=== PATIENT | female | born 1985 | race Caucasian/White ===

== ENCOUNTER → 2018-11-30 | Outpatient (CLI) | payer OTHER ==
--- NOTE | 2018-11-30 12:57 | RADIOLOGY REPORT (SQ) ---
EXAM DESCRIPTION: DUPLEX ART/AVIVA FLOW COMPLETE COMPLETED DATE/TIME: 11/30/2018 12:34 pm REASON FOR STUDY: ATHEROSCLEROSIS OF RENAL ARTERY I70.1 ATHEROSCLEROSIS OF RENAL ARTERY COMPARISON: None. TECHNIQUE: Realtime and static grayscale images acquired. Selected color Doppler, velocities and spe ctral images recorded. LIMITATIONS: None. FINDINGS: RIGHT KIDNEY: RENAL ARTERY VELOCITIES: 98 cm/sec. Segmental artery velocity 66 cm/sec. RENAL VEIN: Color doppler flow present, patent. VELOCITY RATIO: Normal. Normal waveforms. KIDNEY: 11 cm in length. No significant pathology. LEFT KIDNEY: RENAL ARTERY VELOCITIES: 52 cm/sec. Segmental artery velocity 71 cm/sec. RENAL VEIN: Color doppler flow present, patent. VELOCITY RATIO: Normal. Normal waveforms. KIDNEY: 11 cm in length No significant pathology. BLADDER: Normal. OTHER: No other significant finding. IMPRESSION: NO DOPPLER EVIDENCE OF HEMODYNAMICALLY SIGNIFICANT RENAL ARTERY STENOSIS. COMMENT: NORMAL RENAL ARTERY/AORTA VELOCITY RATIO IS LESS THAN OR EQUAL TO 3.5. TECHNICAL DOCUMENTATION: JOB ID: [id number] [employer] All Rights Reserved Reading location - IP/workstation name: [email or web address]
== END ==
LOC: RAD 10:00
PROVIDERS: ATTEND Nurse Practitioner Family
DX: I70.1 Atherosclerosis of renal artery (principal)
CPT/HCPCS: 93975

== ENCOUNTER 2019-09-21 08:45 | Emergency (ER) | payer OTHER ==
[2019-09-21] MEDS ORDERED: ACETAMINOPHEN 325 MG TABLET PO ONE (09:42)
--- NOTE | 2019-09-21 09:42 | ER Document Report ---
ED ENT - General Chief Complaint: Sore Throat Stated Complaint: HEADACHE,SORE THROAT,FEVER Time Seen by Provider: 09/21/19 09:09 Notes: HPI: 34-year-old female who presents today stating on Friday she started to have some runny nose, congestion, sore throat, and a cough. She states a fever of 101. She denies any headache, neck stiffness, rash, dysuria, vomiting, or diarrhea. ROS: See HPI All other review of systems reviewed and otherwise negative Reviewed vital signs and nursing note as charted by RN. PHYSICAL EXAM: CONSTITUTIONAL: Alert and oriented and responds appropriately to questions. Well-appearing; well-nourished HEAD: Normocephalic; atraumatic EYES: PERRL; Conjunctivae clear, sclerae non-icteric ENT: Normal nose; no rhinorrhea; moist mucous membranes; pharynx minimally erythematous with no peritonsillar swelling with a midline nonswollen uvula NECK: Supple without meningismus; non-tender; no cervical lymphadenopathy, no masses CARD: Regular rate and rhythm; no murmurs; symmetric distal pulses RESP: Normal chest excursion without splinting or tachypnea; breath sounds clear and equal bilaterally; no wheezes, no rhonchi, no rales ABD/GI: Normal bowel sounds; non-distended; soft, non-tender BACK: The back appears normal and is non-tender to palpation EXT: Normal ROM in all joints; non-tender to palpation; no edema SKIN: No acute lesions noted NEURO: CN 2-12 intact; 5/5 bilateral upper and lower extremity strength with sensation intact to light touch PSYCH: The patient's mood and manner are appropriate. Grooming and personal hygiene are appropriate. TRAVEL OUTSIDE OF THE [place] IN LAST 30 DAYS: No - Related Data Allergies/Adverse Reactions: No Known Allergies Allergy (Verified 09/21/19 09:28) Past Medical History - Social History Smoking Status: Unknown if Ever Smoked - 24 Family History: Reviewed & Not Pertinent Physical Exam - Vital signs Vitals: Temp Pulse Resp BP Pulse Ox 99.6 F 106 H 16 166/91 H 97 09/21/19 09:25 09/21/19 09:25 09/21/19 09:25 09/21/19 09:25 09/21/19 09:25 Course - Re-evaluation Re-evalutation: 09/21/19 09:42 Given the history and physical with the current pandemic, we will order an outpatient COVID test as well as an x-ray of the chest and a rapid strep. Vital signs as recorded here. No signs of meningitis. Patient has no dysuria, vomiting, or diarrhea. Low suspicion for bacterial meningitis. 09/21/19 10:24 Patient still looks excellent. Rapid strep and x-ray of the chest unremarkable. COVID test will be sent as an outpatient test. Patient will be discharged home with strict return precautions and follow-up with the primary care physician. I explained quarantine instructions directly to the patient. - Vital Signs Vital signs: Temp Pulse Resp BP Pulse Ox 99.6 F 106 H 16 166/91 H 97 09/21/19 09:25 09/21/19 09:25 09/21/19 09:25 09/21/19 09:25 09/21/19 09:25 Discharge - Discharge Clinical Impression: Sore throat (viral), Nasal congestion, Cough Fever Qualifiers: Fever type: unspecified Qualified Code(s): R50.9 - Fever, unspecified Condition: Good Disposition: HOME, SELF-CARE Instructions: COVID-19 Guidance for Persons Under Investigation Additional Instructions: Come back immediately for any difficulty breathing or swallowing, worsening shortness of breath or cough, headache, leg stiffness, confusion, chest pain, leg swelling, or any other acute problems.
--- NOTE | 2019-09-21 10:15 | RADIOLOGY REPORT (SQ) ---
EXAM DESCRIPTION: CHEST SINGLE VIEW IMAGES COMPLETED DATE/TIME: 09/21/2019 10:06 am REASON FOR STUDY: SOB COMPARISON: None. EXAM PARAMETERS: NUMBER OF VIEWS: One view. TECHNIQUE: Single frontal radiographic view of the chest acquired. RADIATION DOSE: NA LIMITATIONS: None. FINDINGS: LUNGS AND PLEURA: No opacities, masses or pneumothorax. No pleural effusion. MEDIASTINUM AND HILAR STRUCTURES: No masses. Contour normal. HEART AND VASCULAR STRUCTURES: Heart normal in size. Normal vasculature. BONES: No acute findings. Thoracic scoliosis. HARDWARE: None in the chest. OTHER: No other significant finding. IMPRESSION: NO ACUTE RADIOGRAPHIC FINDING IN THE CHEST. TECHNICAL DOCUMENTATION: JOB ID: [id number] [employer]- All Rights Reserved Reading location - IP/workstation name: [email or web address]
[2019-09-21 10:51] VITALS: BP 132/91
== END 2019-09-21 10:50 | disposition home or self-care (01) ==
LOC: ER 08:45
DX: U07.1 COVID-19 (principal); J02.9 Acute pharyngitis, unspecified; R50.9 Fever, unspecified; R51 Headache; R09.81 Nasal congestion; R05 Cough; R09.89 Other specified symptoms and signs involving the circulatory and respiratory systems
CPT/HCPCS: 99283; 87070; 87880; 87635; 71045; C9803